=== PATIENT | female | born 1945 | race Caucasian/White ===

== ENCOUNTER → 2021-08-27 | Outpatient (CLI) | payer MEDICARE, OTHER ==
--- NOTE | 2021-08-27 14:38 | Diagnostic Imaging Report ---
INDICATION: Cluster headaches. TIME OF EXAM: 2:14 PM AP odontoid, both oblique as well as lateral views of the cervical spine were obtained. Flexion and extension lateral views were also obtained. There is some degenerative disc disease at C5-C6 level as well as C6-C7 level with disc space narrowing and marginal spurring. No definite motion during flexion-or extension maneuvers is identified. The prevertebral tissues are normal. Odontoid is intact. No fractures are identified. IMPRESSION: Lower cervical spondylosis. No acute bony abnormality is detected. Dictated by: Dictated on workstation # [id number]
== END ==
LOC: RAD 13:41
PROVIDERS: ATTEND Chiropractor
DX: G44.029 Chronic cluster headache, not intractable (principal); M47.812 Spondylosis without myelopathy or radiculopathy, cervical region; R05.9 Cough, unspecified; R06.7 Sneezing
CPT/HCPCS: 72052

== ENCOUNTER 2022-04-17 11:05 | Outpatient (RCR) | payer MEDICARE, OTHER | END 2022-04-21 | disposition home or self-care (01) | PROVIDERS: ATTEND Family Medicine | DX: M54.2 Cervicalgia (principal); R51.9 Headache, unspecified ==

== ENCOUNTER 2022-05-14 13:24 | Outpatient (RCR) | payer MEDICARE, OTHER | END 2022-05-21 | disposition home or self-care (01) | PROVIDERS: ATTEND Family Medicine | DX: M54.2 Cervicalgia (principal); R51.9 Headache, unspecified ==

== ENCOUNTER 2022-05-22 09:47 | Outpatient (RCR) | payer MEDICARE, OTHER | END 2022-05-22 10:20 | disposition home or self-care (01) | PROVIDERS: ATTEND Family Medicine | DX: M54.2 Cervicalgia (principal); R51.9 Headache, unspecified; Z74.09 Other reduced mobility ==